=== PATIENT | female | born 2000 | race Caucasian/White ===

== ENCOUNTER 2022-08-23 14:09 | Emergency (ER) | payer OTHER, BC ==
[2022-08-23] MEDS ORDERED: Ibuprofen 200 MG TAB ONE (15:53)
== END 2022-08-23 16:49 | disposition home or self-care (01) ==
LOC: BURERS 14:09
DX: S90.01XA Contusion of right ankle, initial encounter (principal); V89.2XXA Person injured in unspecified motor-vehicle accident, traffic, initial encounter